=== PATIENT | male | born 1980 | race African-American/Black ===

== ENCOUNTER 2020-05-03 07:02 | Inpatient (IN) | payer OTHER ==
[2020-05-01 23:00] VITALS: BP 114/67
[~2020-05-03] VITALS: Ht 185.4 cm; Wt 77.1 kg
[2020-05-03] MEDS ORDERED: LEVETIRACETAM 1000MG PREMIX 100 ML IV ONE (07:30)
[2020-05-03] MEDS ORDERED: LORAZEPAM 2MG/ML CPJ IM ONE (07:30)
[2020-05-03 08:42] LABS: HEMATOCRIT. 33.2 % (42.0-52.0); HEMOGLOBIN. 10.7 g/dL (14.0-18.0); MEAN CORPUSCULAR HEMOGLOBIN 33.5 pg (28.0-32.0); MEAN CORPUSCULAR VOLUME 104.3 fL (80.0-94.0); MEAN PLATELET VOLUME 10.3 fl (7.4-10.4); PLATELET 159 x1000/uL (130-400); RED BLOOD CELL COUNT 3.18 mill/uL (4.7-6.1); RED CELL DISTRIBUTION WIDTH 16.7 % (11.6-14.6)
[2020-05-03 08:43] LABS: CHLORIDE 103 mEq/L (98-107)
[2020-05-03] MEDS ORDERED: SODIUM CHLORIDE 0.9% 1,000 ML IV ONE (08:45)
[2020-05-03 08:48] LABS: ETHANOL BLOOD < 10 mg/dL
[2020-05-03 08:53] LABS: CREATINE KINASE 66 IU/L (39-308); CREATINE KINASE MB FRACTION < 1.0 ng/mL (0.5-3.6)
[2020-05-03 09:17] LABS: PLATELET ESTIMATE NORMAL
[2020-05-03 09:45] LABS: BG BASE EXCESS -8.3 mmol/L (-2.0-2.0); BG CARBOXYHEMOGLOBIN 1.4 % (0.5-1.5); BG DEOXYHEMOGLOBIN 4.8 % (0.0-5.0); BG FRACTION INSPIRED OXYGEN 36; BG HCO3 ACT 18.5 mmol/L (22.0-26.0); BG METHEMOGLOBIN 0.4 % (0.0-1.5); BG OXYGEN SATURATION 95.1 % (92.0-98.5); BG OXYHEMOGLOBIN 93.4 % (94.0-97.0); BG PCO2 42.8 mmHg (35.0-45.0); BG PH 7.253 (7.350-7.450); BG SAMPLE SITE RIGHT BRACHIAL; BG TOTAL HEMOGLOBIN 11.8 g/dL (12.0-18.0); BG VENT MODE NASAL CANNULA
[2020-05-03 11:09] LABS: INR 1.9; PROTHROMBIN TIME 19.3 sec (9.6-11.0)
[2020-05-03] MEDS ORDERED: FOLIC ACID 1 MG, THIAMINE HCL 100 MG, MVI, ADULT NO.1 10 ML in DEXTROSE 5% WATER 1,000 ML IV ONE ×4 (12:00)
[2020-05-03] MEDS ORDERED: PIPERACILLIN/TAZ 3.375G PREMIX 50 ML IV NR (12:00)
[2020-05-03] MEDS ORDERED: LACTULOSE 300 ML in WATER FOR IRRIGATION,STERILE 700 ML IR NR (12:30)
[2020-05-03] MEDS ORDERED: METOPROLOL TARTRATE 50MG TABLET PO ONE (13:30)
[2020-05-03 13:34] LABS: HEPATITIS B SURFACE ANTIGEN NEGATIVE
[2020-05-03] MEDS ORDERED: LACTULOSE 20G/30ML UDC PO SCH (14:00)
[2020-05-03 14:04] LABS: HEPATITIS A AB IGM NEGATIVE (NEGATIVE)
[2020-05-03] MEDS: CHLORDIAZEPOXIDE 25MG CAPSULE PO SCH (14:19)
[2020-05-03] MEDS ORDERED: PIPERACILLIN/TAZOBACTAM 3.375 G in DEXT 5% WATER 100 ML IV SCH (18:00)
[2020-05-03] MEDS ORDERED: PIPERACILLIN/TAZ 3.375G PREMIX 50 ML IV SCH (20:00)
[2020-05-03] MEDS ORDERED: IOHEXOL-300 100 ML BOTTLE ONE (21:43)
[2020-05-04] VITALS: BP 114/67
[2020-05-04] MEDS: METOPROLOL TARTRATE 50MG TABLET PO SCH ×3 (00:25→22:02)
[2020-05-04] MEDS: LEVETIRACETAM 500MG TABLET PO SCH ×3 (00:25→22:01)
[2020-05-04] MEDS: RIFAXIMIN 550 MG TABLET PO SCH ×3 (00:25→22:02)
[2020-05-04] MEDS: CHLORDIAZEPOXIDE 25MG CAPSULE PO SCH ×4 (00:25→22:02)
[2020-05-04] MEDS: LACTULOSE 20G/30ML UDC PO SCH ×4 (00:43→22:02)
[2020-05-04] MEDS: LORAZEPAM 2MG/ML CPJ IV PRN (02:21)
[2020-05-04] MEDS: PIPERACILLIN/TAZOBACTAM 3.375 G in DEXT 5% WATER 100 ML IV SCH ×4 (03:01→22:01)
[2020-05-04 04:00] VITALS: BP 111/74
[2020-05-04 08:13] VITALS: BP 106/56
[2020-05-04 10:23] LABS: BASOPHILS % 0.5 % (0.0-2.0); EOSINOPHILS % 1.1 % (0.0-5.0); HEMOGLOBIN. 10.7 g/dL (14.0-18.0); LYMPHOCYTES % 12.2 % (20.0-50.0); MEAN CORPUSCULAR HEMOGLOBIN 34.6 pg (28.0-32.0); MEAN CORPUSCULAR VOLUME 100.6 fL (80.0-94.0); MEAN PLATELET VOLUME 9.8 fl (7.4-10.4); MONOCYTES % 11.9 % (2.0-8.0); NEUTROPHILS % 74.3 % (40.0-76.0); PLATELET 118 x1000/uL (130-400); RED BLOOD CELL COUNT 3.08 mill/uL (4.7-6.1); RED CELL DISTRIBUTION WIDTH 16.4 % (11.6-14.6)
[2020-05-04 10:39] LABS: INR 1.7; PROTHROMBIN TIME 17.7 sec (9.6-11.0)
[2020-05-04 10:40] LABS: CHLORIDE 111 mEq/L (98-107)
[2020-05-04] MEDS ORDERED: FOLIC ACID 1 MG, THIAMINE HCL 100 MG, MVI, ADULT NO.1 10 ML in DEXTROSE 5% WATER 1,000 ML IV SCH ×4 (11:00)
[2020-05-04 12:30] VITALS: BP 128/60
[2020-05-04 16:30] VITALS: BP 128/78
[2020-05-04 20:00] VITALS: BP 118/66
[2020-05-05] VITALS (7 sets, daily range): BP systolic 102–132; BP diastolic 63–81
[2020-05-05] MEDS: PIPERACILLIN/TAZOBACTAM 3.375 G in DEXT 5% WATER 100 ML IV SCH ×4 (04:56→21:00)
[2020-05-05] MEDS: LACTULOSE 20G/30ML UDC PO SCH ×4 (06:00→21:50)
[2020-05-05] MEDS: CHLORDIAZEPOXIDE 25MG CAPSULE PO SCH ×3 (06:00→21:00)
[2020-05-05 06:38] LABS: INR 1.8; PROTHROMBIN TIME 18.7 sec (9.6-11.0)
[2020-05-05] MEDS: RIFAXIMIN 550 MG TABLET PO SCH ×2 (08:56→21:01)
[2020-05-05] MEDS: LEVETIRACETAM 500MG TABLET PO SCH ×2 (08:57→21:01)
[2020-05-05] MEDS: METOPROLOL TARTRATE 50MG TABLET PO SCH ×2 (08:57→21:01)
[2020-05-05 10:16] LABS: CHLORIDE 110 mEq/L (98-107)
[2020-05-05 10:29] LABS: BASOPHILS % 0.4 % (0.0-2.0); EOSINOPHILS % 0.2 % (0.0-5.0); HEMATOCRIT. 33.3 % (42.0-52.0); HEMOGLOBIN. 11.3 g/dL (14.0-18.0); LYMPHOCYTES % 13.8 % (20.0-50.0); MEAN CORPUSCULAR HEMOGLOBIN 34.6 pg (28.0-32.0); MEAN CORPUSCULAR VOLUME 102.2 fL (80.0-94.0); MONOCYTES % 7.1 % (2.0-8.0); NEUTROPHILS % 78.5 % (40.0-76.0); RED BLOOD CELL COUNT 3.26 mill/uL (4.7-6.1); RED CELL DISTRIBUTION WIDTH 16.9 % (11.6-14.6)
[2020-05-05 13:06] LABS: PLATELET 92 x1000/uL (130-400)
[2020-05-05] MEDS: FOLIC ACID 1 MG, THIAMINE HCL 100 MG, MVI, ADULT NO.1 10 ML in DEXTROSE 5% WATER 1,000 ML IV SCH ×4 (15:06)
[2020-05-05 17:53] LABS: TOTAL IRON BINDING CAPACITY 229 ug/dL (250-450)
[2020-05-05 18:10] LABS: FERRITIN 918 ng/mL (22-322)
[2020-05-05 18:24] LABS: VITAMIN B12 SERUM >2000 pg/mL pg/mL (211-911)
[2020-05-05] MEDS: ACETAMINOPHEN 325MG TABLET PO PRN (21:00)
[2020-05-06 00:30] VITALS: BP 101/62
[2020-05-06] MEDS: PIPERACILLIN/TAZOBACTAM 3.375 G in DEXT 5% WATER 100 ML IV SCH ×4 (02:23→22:17)
[2020-05-06 04:00] VITALS: BP 143/77
[2020-05-06] MEDS: LACTULOSE 20G/30ML UDC PO SCH ×3 (05:52→22:16)
[2020-05-06] MEDS: CHLORDIAZEPOXIDE 25MG CAPSULE PO SCH ×3 (05:54→22:17)
[2020-05-06 07:01] LABS: EOSINOPHILS % 2.2 % (0.0-5.0); HEMATOCRIT. 32.1 % (42.0-52.0); HEMOGLOBIN. 10.9 g/dL (14.0-18.0); LYMPHOCYTES % 17.6 % (20.0-50.0); MEAN CORPUSCULAR HEMOGLOBIN 34.5 pg (28.0-32.0); MEAN CORPUSCULAR VOLUME 101.3 fL (80.0-94.0); MEAN PLATELET VOLUME 9.7 fl (7.4-10.4); MONOCYTES % 11.8 % (2.0-8.0); NEUTROPHILS % 67.4 % (40.0-76.0); PLATELET 92 x1000/uL (130-400); RED BLOOD CELL COUNT 3.17 mill/uL (4.7-6.1); RED CELL DISTRIBUTION WIDTH 16.9 % (11.6-14.6)
[2020-05-06 07:11] LABS: INR 1.9; PROTHROMBIN TIME 19.3 sec (9.6-11.0)
[2020-05-06 07:19] LABS: CHLORIDE 107 mEq/L (98-107)
[2020-05-06 08:16] VITALS: BP 146/101
[2020-05-06] MEDS: RIFAXIMIN 550 MG TABLET PO SCH ×2 (09:13→20:48)
[2020-05-06] MEDS: ACETAMINOPHEN 325MG TABLET PO PRN (09:14)
[2020-05-06] MEDS: LEVETIRACETAM 500MG TABLET PO SCH ×2 (09:15→20:48)
[2020-05-06] MEDS: METOPROLOL TARTRATE 50MG TABLET PO SCH ×2 (09:15→20:49)
[2020-05-06 12:26] VITALS: BP 100/65
[2020-05-06] MEDS ORDERED: POTASSIUM CHLORIDE INJ 40 MEQ in DEXT 5% WATER 250 ML IV SCH (13:00)
[2020-05-06 16:05] VITALS: BP 124/69
[2020-05-06 20:00] VITALS: BP 149/83
[2020-05-06] MEDS: ACETAMINOPHEN 650MG SUPP PR PRN (20:12)
[2020-05-06] MEDS: FOLIC ACID 1 MG, THIAMINE HCL 100 MG, MVI, ADULT NO.1 10 ML in DEXTROSE 5% WATER 1,000 ML IV SCH ×8 (22:16→23:02)
[2020-05-07] VITALS (7 sets, daily range): BP systolic 93–133; BP diastolic 41–83
[2020-05-07] MEDS: PIPERACILLIN/TAZOBACTAM 3.375 G in DEXT 5% WATER 100 ML IV SCH ×4 (03:51→23:44)
[2020-05-07] MEDS: LORAZEPAM 2MG/ML CPJ IV PRN (04:01)
[2020-05-07] MEDS: LACTULOSE 20G/30ML UDC PO SCH ×2 (05:07→18:09)
[2020-05-07] MEDS: CHLORDIAZEPOXIDE 25MG CAPSULE PO SCH ×3 (05:07→21:30)
[2020-05-07] MEDS: METOPROLOL TARTRATE 50MG TABLET PO SCH ×2 (08:34→21:30)
[2020-05-07] MEDS: LEVETIRACETAM 500MG TABLET PO SCH ×2 (08:34→21:30)
[2020-05-07] MEDS: RIFAXIMIN 550 MG TABLET PO SCH ×2 (08:34→23:44)
[2020-05-07] MEDS: ACETAMINOPHEN 650MG SUPP PR PRN (08:35)
[2020-05-07 10:10] LABS: BASOPHILS % 0.8 % (0.0-2.0); EOSINOPHILS % 1.4 % (0.0-5.0); HEMATOCRIT. 33.6 % (42.0-52.0); HEMOGLOBIN. 11.7 g/dL (14.0-18.0); LYMPHOCYTES % 13.7 % (20.0-50.0); MEAN CORPUSCULAR HEMOGLOBIN 35.1 pg (28.0-32.0); MEAN CORPUSCULAR VOLUME 100.6 fL (80.0-94.0); MEAN PLATELET VOLUME 9.4 fl (7.4-10.4); MONOCYTES % 11.9 % (2.0-8.0); NEUTROPHILS % 72.2 % (40.0-76.0); PLATELET 91 x1000/uL (130-400); RED BLOOD CELL COUNT 3.34 mill/uL (4.7-6.1); RED CELL DISTRIBUTION WIDTH 16.8 % (11.6-14.6)
[2020-05-07 10:19] LABS: CHLORIDE 106 mEq/L (98-107); INR 1.8; PROTHROMBIN TIME 18.8 sec (9.6-11.0)
[2020-05-07] MEDS ORDERED: LIDOCAINE HCL 1% 20ML VIAL (Pyxis) INJ ONE (11:39)
[2020-05-07] MEDS ORDERED: SODIUM BICARBONATE 4% (2.4MEQ) 5ML VIAL IV ONE (11:39)
[2020-05-07] MEDS ORDERED: POTASSIUM CHLORIDE INJ 40 MEQ in DEXT 5% WATER 250 ML IV NR (12:00)
[2020-05-07 13:06] LABS: FOLATE HEMATOCRIT 28.9 % (37.5-51.0)
[2020-05-08] VITALS: BP 115/58
[2020-05-08] MEDS: PIPERACILLIN/TAZOBACTAM 3.375 G in DEXT 5% WATER 100 ML IV SCH ×4 (03:54→21:29)
[2020-05-08 04:00] VITALS: BP 114/62
[2020-05-08] MEDS: CHLORDIAZEPOXIDE 25MG CAPSULE PO SCH ×2 (05:51→14:04)
[2020-05-08 07:24] LABS: BASOPHILS % 0.7 % (0.0-2.0); EOSINOPHILS % 1.1 % (0.0-5.0); HEMATOCRIT. 36.7 % (42.0-52.0); HEMOGLOBIN. 12.5 g/dL (14.0-18.0); LYMPHOCYTES % 14.7 % (20.0-50.0); MEAN CORPUSCULAR HEMOGLOBIN 34.9 pg (28.0-32.0); MEAN CORPUSCULAR VOLUME 102.4 fL (80.0-94.0); MEAN PLATELET VOLUME 9.7 fl (7.4-10.4); MONOCYTES % 11.7 % (2.0-8.0); NEUTROPHILS % 71.8 % (40.0-76.0); PLATELET 101 x1000/uL (130-400); RED BLOOD CELL COUNT 3.58 mill/uL (4.7-6.1); RED CELL DISTRIBUTION WIDTH 17.5 % (11.6-14.6)
[2020-05-08 07:29] LABS: CHLORIDE 106 mEq/L (98-107)
[2020-05-08 08:00] VITALS: BP 118/86
[2020-05-08 09:04] LABS: PHOSPHORUS 1.6 mg/dL (2.5-4.9)
[2020-05-08] MEDS: LACTULOSE 20G/30ML UDC PO SCH ×2 (09:45→18:24)
[2020-05-08] MEDS: LEVETIRACETAM 500MG TABLET PO SCH ×2 (09:45→21:27)
[2020-05-08] MEDS: METOPROLOL TARTRATE 50MG TABLET PO SCH ×2 (09:45→21:40)
[2020-05-08 12:00] VITALS: BP 117/80
[2020-05-08] MEDS ORDERED: MAGNESIUM 4 G PREMIX 100 ML IV NR (12:00)
[2020-05-08] MEDS ORDERED: POTASSIUM PHOS,M-BASIC-D-BASIC 20 MMOL in DEXT 5% WATER 243.3333 ML IV NR (13:00)
[2020-05-08 13:11] LABS: FOLATE RBC 1785 ng/mL (>498)
[2020-05-08] MEDS: RIFAXIMIN 550 MG TABLET PO SCH ×2 (14:03→21:27)
[2020-05-08] MEDS: FOLIC ACID 1 MG, THIAMINE HCL 100 MG, MVI, ADULT NO.1 10 ML in DEXTROSE 5% WATER 1,000 ML IV SCH ×4 (14:05)
[2020-05-08 16:00] VITALS: BP 118/85
[2020-05-08 20:00] VITALS: BP 117/66
[2020-05-09] VITALS: BP 133/71
[2020-05-09 04:00] VITALS: BP 120/84
[2020-05-09 06:39] LABS: PHOSPHORUS 1.4 mg/dL (2.5-4.9)
[2020-05-09 08:00] VITALS: BP 120/61
[2020-05-09] MEDS: METOPROLOL TARTRATE 50MG TABLET PO SCH ×2 (09:14→21:17)
[2020-05-09] MEDS: LACTULOSE 20G/30ML UDC PO SCH (09:14)
[2020-05-09] MEDS: LEVETIRACETAM 500MG TABLET PO SCH ×2 (09:14→21:17)
[2020-05-09] MEDS: FOLIC ACID 1 MG, THIAMINE HCL 100 MG, MVI, ADULT NO.1 10 ML in DEXTROSE 5% WATER 1,000 ML IV SCH ×4 (12:26)
[2020-05-09] MEDS ORDERED: POTASSIUM PHOS,M-BASIC-D-BASIC 20 MMOL in DEXT 5% WATER 243.3333 ML IV NR (14:00)
[2020-05-09 20:00] VITALS: BP 129/72
[2020-05-10] VITALS (7 sets, daily range): BP systolic 112–124; BP diastolic 57–76
[2020-05-10] MEDS: ACETAMINOPHEN 325MG TABLET PO PRN (05:13)
[2020-05-10 07:20] LABS: CHLORIDE 103 mEq/L (98-107)
[2020-05-10 07:43] LABS: BASOPHILS % 0.6 % (0.0-2.0); EOSINOPHILS % 1.3 % (0.0-5.0); HEMATOCRIT. 35.5 % (42.0-52.0); LYMPHOCYTES % 12.1 % (20.0-50.0); MEAN CORPUSCULAR HEMOGLOBIN 34.4 pg (28.0-32.0); MEAN CORPUSCULAR VOLUME 101.7 fL (80.0-94.0); MEAN PLATELET VOLUME 10.3 fl (7.4-10.4); MONOCYTES % 11.4 % (2.0-8.0); NEUTROPHILS % 74.6 % (40.0-76.0); PLATELET 99 x1000/uL (130-400); RED BLOOD CELL COUNT 3.49 mill/uL (4.7-6.1); RED CELL DISTRIBUTION WIDTH 17.7 % (11.6-14.6)
[2020-05-10] MEDS: LEVETIRACETAM 500MG TABLET PO SCH (09:22)
[2020-05-10] MEDS: METOPROLOL TARTRATE 50MG TABLET PO SCH (09:23)
[2020-05-10] MEDS: LACTULOSE 20G/30ML UDC PO SCH ×3 (09:23→18:24)
[2020-05-10] MEDS ORDERED: ACETAMINOPHEN 650MG SUPP PR PRN (10:45)
[2020-05-10] MEDS: FOLIC ACID 1 MG, THIAMINE HCL 100 MG, MVI, ADULT NO.1 10 ML in DEXTROSE 5% WATER 1,000 ML IV SCH ×4 (12:53)
[2020-05-10] MEDS ORDERED: POTASSIUM CHLORIDE 20MEQ TABLET SR PO NR (14:30)
[2020-05-10] MEDS ORDERED: LACTULOSE 20G/30ML UDC PO SCH (15:00)
[2020-05-11] MEDS: LEVETIRACETAM 500MG TABLET PO SCH ×5 (00:46→20:14)
[2020-05-11] MEDS: LACTULOSE 20G/30ML UDC PO SCH ×4 (00:46→17:42)
[2020-05-11] MEDS: METOPROLOL TARTRATE 50MG TABLET PO SCH ×3 (00:46→10:58)
[2020-05-11 07:31] LABS: BASOPHILS % 0.4 % (0.0-2.0); HEMATOCRIT. 38.7 % (42.0-52.0); HEMOGLOBIN. 12.9 g/dL (14.0-18.0); LYMPHOCYTES % 15.2 % (20.0-50.0); MEAN CORPUSCULAR HEMOGLOBIN 34.1 pg (28.0-32.0); MEAN CORPUSCULAR VOLUME 102.1 fL (80.0-94.0); MEAN PLATELET VOLUME 9.9 fl (7.4-10.4); MONOCYTES % 12.3 % (2.0-8.0); NEUTROPHILS % 71.1 % (40.0-76.0); PLATELET 133 x1000/uL (130-400); RED BLOOD CELL COUNT 3.79 mill/uL (4.7-6.1)
[2020-05-11 07:39] LABS: CHLORIDE 105 mEq/L (98-107)
[2020-05-11 07:46] LABS: PHOSPHORUS 1.8 mg/dL (2.5-4.9)
[2020-05-11 08:00] VITALS: BP 107/75
[2020-05-11 12:00] VITALS: BP 111/74
[2020-05-11] MEDS: FOLIC ACID 1 MG, THIAMINE HCL 100 MG, MVI, ADULT NO.1 10 ML in DEXTROSE 5% WATER 1,000 ML IV SCH ×4 (12:42)
[2020-05-11] MEDS: MEGESTROL ACETATE 400 MG/10 ML UDC PO SCH (12:44)
[2020-05-11] MEDS ORDERED: POTASSIUM PHOS,M-BASIC-D-BASIC 15 MMOL in DEXT 5% WATER 245 ML IV ONE (12:45)
[2020-05-11] MEDS ORDERED: POTASSIUM PHOS,M-BASIC-D-BASIC 20 MMOL in DEXT 5% WATER 243.3333 ML IV ONE (13:30)
[2020-05-11 14:02] LABS: PHOSPHORUS 1.9 mg/dL (2.5-4.9)
[2020-05-11 16:00] VITALS: BP 105/70
[2020-05-11 20:00] VITALS: BP 118/74
[2020-05-12] VITALS: BP 127/72
[2020-05-12] MEDS: LACTULOSE 20G/30ML UDC PO SCH ×4 (00:46→17:14)
[2020-05-12 03:53] VITALS: BP 121/74
[2020-05-12 08:00] VITALS: BP 121/68
[2020-05-12 08:05] LABS: CHLORIDE 106 mEq/L (98-107)
[2020-05-12] MEDS: METOPROLOL TARTRATE 50MG TABLET PO SCH ×2 (08:42→21:23)
[2020-05-12] MEDS: MEGESTROL ACETATE 400 MG/10 ML UDC PO SCH (08:42)
[2020-05-12] MEDS: LEVETIRACETAM 500MG TABLET PO SCH ×2 (08:42→21:22)
[2020-05-12 08:55] LABS: HEMATOCRIT. 37.8 % (42.0-52.0); HEMOGLOBIN. 12.6 g/dL (14.0-18.0); MEAN CORPUSCULAR HEMOGLOBIN 34.3 pg (28.0-32.0); RED BLOOD CELL COUNT 3.67 mill/uL (4.7-6.1); RED CELL DISTRIBUTION WIDTH 17.4 % (11.6-14.6)
[2020-05-12] MEDS: FOLIC ACID 1 MG, THIAMINE HCL 100 MG, MVI, ADULT NO.1 10 ML in DEXTROSE 5% WATER 1,000 ML IV SCH ×4 (10:42)
[2020-05-12 11:53] VITALS: BP 129/64
[2020-05-12 14:59] LABS: PHOSPHORUS 2.4 mg/dL (2.5-4.9)
[2020-05-12 16:00] VITALS: BP 113/67
[2020-05-12 16:15] LABS: PLATELET ESTIMATE NORMAL
[2020-05-12 20:00] VITALS: BP 115/70
[2020-05-13] VITALS: BP 106/67
[2020-05-13] MEDS: LACTULOSE 20G/30ML UDC PO SCH ×5 (00:07→23:38)
[2020-05-13 04:00] VITALS: BP 116/79
[2020-05-13 08:01] VITALS: BP 118/81
[2020-05-13] MEDS: LEVETIRACETAM 500MG TABLET PO SCH ×2 (08:47→21:38)
[2020-05-13] MEDS: MEGESTROL ACETATE 400 MG/10 ML UDC PO SCH (08:47)
[2020-05-13] MEDS: METOPROLOL TARTRATE 50MG TABLET PO SCH ×2 (08:47→21:38)
[2020-05-13] MEDS: FOLIC ACID 1 MG, THIAMINE HCL 100 MG, MVI, ADULT NO.1 10 ML in DEXTROSE 5% WATER 1,000 ML IV SCH ×4 (11:55)
[2020-05-13 12:00] VITALS: BP 119/81
[2020-05-13 16:00] VITALS: BP 118/63
[2020-05-13] MEDS ORDERED: SODIUM PHOS,M-BASIC-D-BASIC 15 MM in SODIUM CHLORIDE 0.9% 245 ML IV NR ×2 (18:00→21:00)
[2020-05-13 20:00] VITALS: BP 112/53
[2020-05-14] VITALS: BP 108/59
[2020-05-14 04:00] VITALS: BP 112/76
[2020-05-14] MEDS: LACTULOSE 20G/30ML UDC PO SCH ×3 (05:52→17:06)
[2020-05-14 07:00] LABS: CHLORIDE 103 mEq/L (98-107)
[2020-05-14 07:34] LABS: BASOPHILS % 0.7 % (0.0-2.0); HEMATOCRIT. 35.5 % (42.0-52.0); HEMOGLOBIN. 11.8 g/dL (14.0-18.0); LYMPHOCYTES % 7.6 % (20.0-50.0); MEAN CORPUSCULAR HEMOGLOBIN 34.1 pg (28.0-32.0); MEAN CORPUSCULAR VOLUME 102.4 fL (80.0-94.0); MEAN PLATELET VOLUME 10.2 fl (7.4-10.4); MONOCYTES % 7.9 % (2.0-8.0); NEUTROPHILS % 82.8 % (40.0-76.0); PLATELET 136 x1000/uL (130-400); RED BLOOD CELL COUNT 3.47 mill/uL (4.7-6.1); RED CELL DISTRIBUTION WIDTH 16.9 % (11.6-14.6)
[2020-05-14 08:00] VITALS: BP 126/70
[2020-05-14] MEDS: MEGESTROL ACETATE 400 MG/10 ML UDC PO SCH (08:44)
[2020-05-14] MEDS: METOPROLOL TARTRATE 50MG TABLET PO SCH ×2 (08:44→21:00)
[2020-05-14] MEDS: LEVETIRACETAM 500MG TABLET PO SCH ×2 (08:45→21:50)
[2020-05-14 12:07] VITALS: BP 135/78
[2020-05-14 16:00] VITALS: BP 126/73
[2020-05-14] MEDS: FOLIC ACID 1 MG, THIAMINE HCL 100 MG, MVI, ADULT NO.1 10 ML in DEXTROSE 5% WATER 1,000 ML IV SCH ×4 (18:36)
[2020-05-15] VITALS: BP 99/65
[2020-05-15] MEDS: LACTULOSE 20G/30ML UDC PO SCH ×5 (00:53→23:12)
[2020-05-15] MEDS: ACETAMINOPHEN 325MG TABLET PO PRN (00:54)
[2020-05-15 04:00] VITALS: BP 111/69
[2020-05-15 08:00] VITALS: BP 126/73
[2020-05-15] MEDS: METOPROLOL TARTRATE 50MG TABLET PO SCH (08:45)
[2020-05-15] MEDS: LEVETIRACETAM 500MG TABLET PO SCH ×2 (08:45→23:12)
[2020-05-15] MEDS: MEGESTROL ACETATE 400 MG/10 ML UDC PO SCH (08:46)
[2020-05-15 12:00] VITALS: BP 132/81
[2020-05-15] MEDS: FOLIC ACID 1 MG, THIAMINE HCL 100 MG, MVI, ADULT NO.1 10 ML in DEXTROSE 5% WATER 1,000 ML IV SCH ×4 (13:51)
[2020-05-15 16:00] VITALS: BP 112/82
[2020-05-15 20:00] VITALS: BP 111/73
[2020-05-16] VITALS: BP 113/65
[2020-05-16 04:00] VITALS: BP 105/67
[2020-05-16 08:00] VITALS: BP 128/82
[2020-05-16] MEDS: MEGESTROL ACETATE 400 MG/10 ML UDC PO SCH (09:37)
[2020-05-16] MEDS: LEVETIRACETAM 500MG TABLET PO SCH (09:38)
[2020-05-16] MEDS ORDERED: KEPP500 PO (11:37)
[2020-05-16] MEDS ORDERED: FOLI-43 MT (11:37)
[2020-05-16] MEDS ORDERED: THIA100T88 MT (11:37)
[2020-05-16] MEDS ORDERED: LACT10SO7 PO (11:37)
[2020-05-16] MEDS: FOLIC ACID 1 MG, THIAMINE HCL 100 MG, MVI, ADULT NO.1 10 ML in DEXTROSE 5% WATER 1,000 ML IV SCH ×4 (11:50)
[2020-05-16 12:00] VITALS: BP 134/86
[2020-05-16] MEDS: LACTULOSE 20G/30ML UDC PO SCH (13:33)
[2020-05-16 14:12] VITALS: BP 134/86
== END 2020-05-16 15:15 | disposition home or self-care (01) | DRG 871 ==
LOC: ER 07:30 → EDBEDREQ 08:11 → 6WST 10:07 → EDBEDREQ 10:18 → EDBEDREQSVC 10:18 → ENRESERV 21:37 → 4WST 05-07 15:39
PROVIDERS: ADMIT Internal Medicine; ATTEND Internal Medicine
DX: A41.9 Sepsis, unspecified organism (principal); K66.1 Hemoperitoneum; E43 Unspecified severe protein-calorie malnutrition; E72.20 Disorder of urea cycle metabolism, unspecified; D68.9 Coagulation defect, unspecified; R18.8 Other ascites; G40.509 Epileptic seizures related to external causes, not intractable, without status epilepticus; K74.60 Unspecified cirrhosis of liver; F10.10 Alcohol abuse, uncomplicated; D69.59 Other secondary thrombocytopenia; E80.6 Other disorders of bilirubin metabolism; D53.9 Nutritional anemia, unspecified; K72.90 Hepatic failure, unspecified without coma; R13.12 Dysphagia, oropharyngeal phase; Z60.2 Problems related to living alone; Y90.9 Presence of alcohol in blood, level not specified; G40.409 Other generalized epilepsy and epileptic syndromes, not intractable, without status epilepticus; E83.39 Other disorders of phosphorus metabolism; Z71.41 Alcohol abuse counseling and surveillance of alcoholic; Z79.899 Other long term (current) drug therapy; Z68.22 Body mass index [BMI] 22.0-22.9, adult; Z20.822 Contact with and (suspected) exposure to COVID-19
CPT/HCPCS: 36415; 36600; 70551; 71045; 74177; 76700; 76705; 80048; 80053; 80076; 80307; 80320; 80329; 82140; 82270; 82375; 82542; 82550; 82553; 82607; 82728; 82747; 82805; 82962; 83036; 83540; 83550; 83735; 83880; 84100; 84443; 84484; 85014; 85025; 86705; 86709; 86803; 87340; 93005; 96372; 96374; 97162; 97164; 97530; 99291; A6261; C1893; J1953; J2060; J2543; J3411; J3475; J3480; J3490; J7030; J7040; J7050; J7060; J7070; Q9967; U0003; G0480